=== PATIENT | female | born 1970 | race Caucasian/White ===

== ENCOUNTER 2016-11-14 06:24 | Day surgery (SDC) | payer MEDICARE, MEDICAID ==
[2016-11-13 15:07] LABS: APTT 26.2 SECONDS (22.8-39.4); INR 1.07 (0.85-1.17); PROTIME 13.7 SECONDS (11.6-15.0)
[2016-11-13 15:21] LABS: ANION GAP 13.9 mmol/L (8-16); CALCIUM 8.3 mg/dL (8.5-10.1); CREATININE - SERUM 2.5 mg/dL (0.6-1.3); POTASSIUM - SERUM 4.9 mmol/L (3.5-5.1)
[2016-11-13 15:25] LABS: BASOPHILS 0.4 % (0.0-2.0); EOSINOPHILS 2.9 % (0-7); HEMATOCRIT 34.5 % (36.0-48.0); HEMOGLOBIN 10.7 g/dL (12-16); IMMATURE GRANULOCYTES 0.1 % (0-5); LYMPHOCYTES 17.9 % (15-50); MCH 29.2 pg (26.0-34.0); MCV 94.3 fL (80.0-100.0); MEAN PLATELET VOLUME 9.2 fL (7.4-10.4); MONOCYTES 8.7 % (2-11); RBC 3.66 10x6/uL (4.00-5.40); RDW 13.3 % (11.5-14.5); WBC 7.8 10x3/uL (4.8-10.8)
[2016-11-13 15:26] LABS: PLATELET COUNT 248 10x3/uL (130-400)
[~2016-11-14] VITALS: Ht 157.5 cm; Wt 99.8 kg
[~2016-11-14 06:24] MED LIST: AMOXICILLIN500 M1 PO; ASPIRIN325 MG PO; COREG 3.1253.125 MG PO; FIORICET-COD 51 EACH PO; FLORINEF 0.1 M0.1 MG PO; FUROSEMIDE20 MG PO; HYDROCODONE-APA1 TAB PO; INCRUSE ELLI62.5 MCG INH; LASIX20 MG PO; LASIX40 MG PO; PACERONE200 MG PO; PAXIL40 MG PO; PHENERGAN25 M1 PO; PROAIR HFA8.5 GM INH; RYTHMOL SR225 MG PO; SPIRIVA18 MCG INH; SYMBICORT 16010.2 GM INH; SYNTHROID25 MCG PO; VITAMIN D250000 UNIT PO; ZESTRIL20 MG PO
[2016-11-14 08:38] VITALS: BP 136/82; Ht 157.5 cm; Wt 99.8 kg
[2016-11-14 08:48] LABS: HCG URINE NEGATIVE (NEGATIVE)
[2016-11-14] MEDS ORDERED: HYDROCODON-ACE1 EAC7 PO (13:50)
--- NOTE | 2016-11-18 14:04 | OP ---
PATIENT NAME: NOEMI VOGEL MEDICAL RECORD: [id number] :68 LOCATION:[facility] ADMISSION DATE: SURGEON: CARLOS EPSTEIN MD DATE OF OPERATION: 11/14/2016 PREOPERATIVE DIAGNOSES: Chronic kidney disease stage V. Complicating diagnoses of obesity, depression, anxiety, ____, hypertension and a number of others. POSTOPERATIVE DIAGNOSES: Chronic kidney disease stage V. Complicating diagnoses of obesity, depression, anxiety, ____, hypertension and a number of others. OPERATIONS PERFORMED: 1. Creation of a left brachial artery to basilic vein Howard type AV fistula. 2. Laparoscopy with insertion of a right-sided dual cuffed swan neck coil peritoneal dialysis catheter and suture plication or omentopexy, fixating the omentum to the anterior abdominal wall in the right upper quadrant. SURGEON: Carlos Epstein MD. ANESTHESIA: General endotracheal per [employer]. REFERRING PHYSICIAN: Matt Martinez MD. PREOPERATIVE NOTE: Ms. Vogel is a 46-year-old obese white female patient with chronic kidney disease, who is likely to require dialysis soon. She was referred to me for peritoneal dialysis catheter placement and creation of an AV fistula. She has rather poor veins and it is anticipated that she will need a 2-stage brachial artery to translocated basilic vein AV fistula. I will plan laparoscopic insertion of the PD catheter today. The fistula was constructed first. With the patient under anesthesia, she was prepped and draped in sterile manner. I examined her arm with ultrasound using topical nitroglycerin and a Vahe drain as a proximal venous tourniquet. The patient's basilic vein was of suitable caliber. The brachial artery appeared to be small, somewhat difficult to visualize with the ultrasound device. We had available today and I elected to go ahead with a brachiobasilic fistula. A hockey stick-shaped incision was made on the medial aspect of the arm and across the antecubital space and through that, the basilic vein was exposed in its tributaries, divided between 3-0 Vicryl ligatures and it was transected distally below the level of the antecubital crease, ligated there with 3-0 Vicryl and prepared for anastomosis. It was treated with topical papaverine, was flushed with heparinized saline and distended with hydrostatic pressure. The brachial artery was exposed. This dissection was considerably more difficult than usual with the artery in an aberrant location or aberrant anatomy covering the artery quite deep with muscle tissue rather than it being under the usual thin flap aponeurosis. The artery was quite good size. It was very soft and had no visible or palpable changes of atherosclerosis or calcification. It was controlled with doubly looped Silastic tapes. The artery was opened for about 7 mm. It was flushed proximally and distally with heparinized saline and the vein flushed again with heparinized saline, was beveled and then anastomosed end-to-side with running 7-0 Prolene. With completion of the suture line and release of the occluding clamps and vessel loops, excellent flow was immediately established in the fistula with persistence of flow in the distal brachial artery and in the radial artery and palmar arch. The wound was irrigated with OPERATIVE REPORT [id number] NOEMI VOGEL saline containing gentamicin and Ancef. The wound was infiltrated with 0.25% Marcaine with epinephrine and the wound was closed with interrupted 3-0 Vicryl and then running intracuticular 4-0 Monocryl and Dermabond glue. It was dressed with Maxorb Ag, Tegaderm and Cavilon skin prep. Next, the patient's abdomen was approached. A small incision was made in the left upper quadrant and through that, a 0-degree 5-mm diameter laparoscope was inserted using an XL Optiview type port. Pneumoperitoneum was established with carbon dioxide and I then switched to a 30-degree angled 5-mm scope. One additional 5-mm port and one 8-mm port was placed subsequently along the left side of the abdomen. I found that the patient had no evidence of any intra-abdominal adhesions. She has quite a marked diastasis recti with wide separation of the rectus muscles, but no true hernias were present. The omentum was quite generous and would require a fixation suture to help prevent omental wraps obstructing the dialysis catheter. An incision was made just above the level of the belly button laterally on the right side of the abdomen and through that, a needle and guidewire were inserted into the peritoneal cavity. A dilator peel-away sheath was inserted and then through that, catheter was inserted. The coiled catheter was placed in the pelvis and the Dacron felt cuff inserted deeply into the substance of the rectus muscle. The catheter was then brought out laterally and inferiorly through the subcutaneous tunnel, leaving the second of the Dacron felt cuff deep in the subcutaneous tissue. The catheter was flushed with saline and then hep-locked, clamped and capped. The abdominal field was examined and the omentum was sutured to the anterior abdominal wall in the right upper quadrant with a single 0 Ethibond suture with endoscopic technique. The ports were removed. A Kwesi-Abraham suture passer was used to close the fascia at the 8-mm port site. The other port sites were not closed in that manner, just irrigated with Ancef and gentamicin solution, infiltrated with Marcaine and the skin closed with interrupted inverted 3-0 Vicryl. The incisions were sealed and closed further with Dermabond glue and dressed with Maxorb Ag, Tegaderm and Cavilon skin prep. I used Dermabond glue to seal the catheter exit site in the right side of the abdomen and used Mastisol and quarter-inch Steri-Strips to secure the catheter. This was then covered with Maxorb Ag and Tegaderm and then the catheter was coiled up and all were covered over by 4 x 4 Medipore dressing. At this point then, the patient was awakened and extubated and taken to the recovery room in stable condition. Blood loss during the operation was insignificant and unreplaced and all sponges, instruments, and needles were accounted for. No drain was used and no surgical specimen was submitted for histopathology. PLAN: This patient will require return to the operating room in a few weeks for a second-stage procedure to translocate the basilic vein fistula. She will need to have her catheter flushed beginning next week by the peritoneal dialysis nurse. I will her have her return to see me in my office in 2 weeks and she may leave the original operative dressings on her other incisions intact until that time. I have left for her a prescription for Vicodin 5/325 with instructions that she may take 1 or 2 q.4-6 hours p.r.n. pain and then she is encouraged strongly not to take more often than prescribed and notified that this prescription cannot be refilled and cannot be called in to the pharmacy, but requires a written prescription. She is given my cell phone/telephone number so that she can reach me if she needs me over the weekend or outside of regular office hours. She is of course encouraged to call the office during regular business hours for most of her needs. Her appointment should be made for her today by the outpatient nurses before she is discharged. The patient is quite anxious and I do not know that she will tolerate OPERATIVE REPORT [id number] NOEMI VOGEL postoperative discomfort while at home. I have offered and tried to encourage her to stay in overnight observation. At this point, at least as I dictate, she is still insisting that she wants to go home, but she is also complaining of pain and worried about whether she will get a prescription, et cetera. We will not know until an hour or so from now whether she is actually going to go home or rather she will stay in overnight observation. TRANSINT:[id number] Voice Confirmation ID: [id number] DOCUMENT ID: [id number] CARLOS EPSTEIN MD at 1404 CC: PARIS MARTINEZ MD [id number] DICTATION DATE: 11/14/16 1415 GENETIC SCIENTIST: 11/15/16 0027 [facility] 11/14/[address] [address]
[2016-12-18] MEDS ORDERED: INCRUSE ELLI62.5 MCG INH (15:21)
== END 2016-11-14 16:45 | disposition home or self-care (01) ==
LOC: D.OPS 06:24 → D.PAN 09:00 → D.OPS 09:30 → D.PAN 09:30 → D.OPS 16:45
PROVIDERS: Internal Medicine Nephrology; Surgery
DX: I12.0 Hypertensive chronic kidney disease with stage 5 chronic kidney disease or end stage renal disease (principal); N18.5 Chronic kidney disease, stage 5; D63.1 Anemia in chronic kidney disease; Q79.59 Other congenital malformations of abdominal wall; I95.9 Hypotension, unspecified; J45.909 Unspecified asthma, uncomplicated; I45.6 Pre-excitation syndrome; E66.9 Obesity, unspecified; F32.9 Major depressive disorder, single episode, unspecified; F41.9 Anxiety disorder, unspecified; Z68.41 Body mass index [BMI] 40.0-44.9, adult

== ENCOUNTER 2016-12-19 05:28 | Day surgery (SDC) | payer MEDICARE ==
[2016-12-18 16:31] LABS: BASOPHILS 0.3 % (0.0-2.0); EOSINOPHILS 4.4 % (0-7); HEMATOCRIT 34.5 % (36.0-48.0); HEMOGLOBIN 10.8 g/dL (12-16); IMMATURE GRANULOCYTES 0.1 % (0-5); LYMPHOCYTES 12.5 % (15-50); MCH 29.7 pg (26.0-34.0); MCHC 31.3 g/dL (31.0-37.0); MCV 94.8 fL (80.0-100.0); MEAN PLATELET VOLUME 9.1 fL (7.4-10.4); MONOCYTES 8.4 % (2-11); NEUTROPHILS 74.3 % (40-80); PLATELET COUNT 267 10x3/uL (130-400); RBC 3.64 10x6/uL (4.00-5.40); RDW 13.3 % (11.5-14.5)
[2016-12-18 16:41] LABS: ANION GAP 15.2 mmol/L (8-16); APTT 25.1 SECONDS (22.8-39.4); CALCIUM 8.9 mg/dL (8.5-10.1); CARBON DIOXIDE 28.3 mmol/L (21.0-32.0); CREATININE - SERUM 2.9 mg/dL (0.6-1.3); INR 1.1 (0.85-1.17); POTASSIUM - SERUM 4.5 mmol/L (3.5-5.1)
[~2016-12-19] VITALS: Ht 157.5 cm; Wt 101.2 kg
[~2016-12-19 05:28] MED LIST changes: +HYDROCODON-ACE1 EAC7 PO
[2016-12-19] MEDS ORDERED: PROAIR HFA8.5 GM INH (07:32)
[2016-12-19 07:48] VITALS: BP 110/68; Ht 157.5 cm; Wt 101.2 kg
[2016-12-19 08:05] LABS: HCG URINE NEGATIVE (NEGATIVE)
--- NOTE | 2016-12-19 10:42 | NUR ---
EVICEL 2ML LOT [id number]
[2016-12-19] MEDS ORDERED: NORCO 7.5/325 T1 TA1 PO (11:53)
--- NOTE | 2016-12-19 20:56 | OP ---
PATIENT NAME: NOEMI VOGEL MEDICAL RECORD: [id number] :68 LOCATION:[facility] ADMISSION DATE: SURGEON: CARLOS EPSTEIN MD DATE OF OPERATION: 12/19/2016 PREOPERATIVE DIAGNOSES: 1. Chronic kidney disease stage V. 2. Mechanical malfunction of peritoneal dialysis catheter. OPERATION PERFORMED: Plan to return to the operating room for a second stage and creation of a left brachial artery to translocated basilic vein arteriovenous fistula and cathetergram and removal of peritoneal dialysis catheter. SURGEON: Carlos Epstein MD ANESTHESIA: General with LMA per [employer] OPERATOR. REFERRING PHYSICIAN: Dr. Matt Martinez. PREOPERATIVE NOTE: Ms. Vogel is a 46-year-old obese white female with poor peripheral veins for access, who has chronic kidney disease and is anticipated to require dialysis within months to a year or so. At this time, status post implantation of a peritoneal dialysis catheter and also is status post creation of a Howard-type AV fistula between the brachial artery and the basilic vein at the level of the antecubital space. She is to be returned to the operating room today as planned for the second stage operation to create the translocated basilic vein fistula. Also, her PD catheter has been difficult to flush and is not draining well, since it may be considerable time before she really needs it. Dr. Martinez has requested that I just remove the catheter. The plan to do a cathetergram and C-arm fluoroscopy. First, just to see what the problem is. First, the left arm was approached. I used ultrasound to examine the arm and noted that the basilic vein from axilla to the antecubital space was about centimeter in diameter or greater. I made a longitudinal incision from axilla to antecubital space and mobilized the vein, fully divided tributaries between Vicryl ligatures and Hemoclips. I created a slightly lateral subcutaneous tunnel as close to the skin as possible. The patient was heparinized with 2000 units of heparin and the vein was then clamped in the axilla and just above the arterial anastomosis. The vein was marked with a marking pen to aid in orientation and prevent twisting. The vein was treated with topical papaverine multiple times during the dissection. The vein was transected on the beveled and then from the sensory nerves, which overlay it and it was pulled through the tunnel, back to the antecubital space where an end-to-end washington-suture anastomosis 7-0 Prolene was performed. The suture line was also sealed with Ethicon Evicel and with release of the occluding clamps, excellent flow was established through the fistula. The fistula was easily palpable in its shallow subcutaneous tunnel. The radial artery pulse at the wrist is present. The Doppler pulsatile flow signal is better with occlusion of the fistula, but is still present with release of compression and opening the fistula. The anastomosis was carefully examined and was noted not narrowly vein at that point. The wound was then irrigated and infiltrated with 0.25% Marcaine with epinephrine and closed with interrupted inverted 3-0 Vicryl and running intracuticular 4-0 Monocryl and Dermabond glue and it was dressed with Maxorb Ag, Tegaderm and Cavilon skin prep. OPERATIVE REPORT [id number] NOEMI VOGEL The abdomen was then approached, I first flushed the catheter with saline and noted that it flushed rather easily. On examination under fluoroscopy, the coiled catheter was located in the right upper quadrant, having migrated full 180 degrees from its initial position in the pelvis. I injected contrast and saw no evidence of significant omental or other wrap. The catheter was flushed again with saline. It flushed easily and I was able to actually aspirates some of the irrigation fluid. I went ahead and removed the catheter, I made an incision at the previous operative site on the right side of the abdomen and exposed the catheter in the subcutaneous tissues and divided and discarded the external portion. Dissection with electrocautery exposed both Dacron felt cuffs and the catheter was then pulled out. It was discarded and not sent for any type of pathology examination or other documentation. I closed the anterior rectus fascial defect with 2 [id number]-[id number] 0 Vicryl sutures. The wound was irrigated with Ancef/gentamicin solution and infiltrated with 0.25% Marcaine with epinephrine and irrigated with saline and then the subcutaneous tissues were closed with Vicryl sutures and the skin was closed with a running 4-0 Monocryl and Dermabond glue and again Tegaderm and Maxorb AG dressings with Cavilon were applied. The patient at that point was awakened and taken to the recovery room in stable condition. Blood loss during the procedure was trivial and was unreplaced. All sponges, instruments and needles were accounted for. No drain was used and no surgical specimen was submitted for histopathology. PLAN: I have the patient to return to see me in my office next week. Assuming she goes home today as we had planned preoperatively. For pain, she is given a prescription for hydrocodone, [place] 7-1/2 mg, she is to take 1 p.o. q.4 hours p.r.n. pain. She was given 20, of course there are no refills. I will check her back in my office next week as I said and probably change her dressing then. She will continue all of her previous home medications and renal diet. She will resume activities as tolerated. TRANSINT:[id number] Voice Confirmation ID: [id number] DOCUMENT ID: [id number] CARLOS EPSTEIN MD at 2056 CC: PARIS MARTINEZ MD [id number] DICTATION DATE: 12/19/16 1208 SPECTRAL SCIENTIST: 12/19/16 1935 [facility] [address] [place] [address]
--- NOTE | 2016-12-19 21:10 | NUR ---
1330 IV DC WITH CATHER TIP INTACT
--- NOTE | 2016-12-19 21:14 | NUR ---
[address] EPSTEIN PT AND FAMILY WANTINT YO TALK WITH HIM , DR EPSTEIN STILL IN SURGERY 1430 DR EPSTEIN IN ROOM
== END 2016-12-19 14:30 | disposition home or self-care (01) ==
LOC: D.OPS 05:28 → D.PAN 08:00 → D.OPS 08:00
PROVIDERS: Internal Medicine Nephrology; Surgery
DX: T85.691A Other mechanical complication of intraperitoneal dialysis catheter, initial encounter (principal); Y83.8 Other surgical procedures as the cause of abnormal reaction of the patient, or of later complication, without mention of misadventure at the time of the procedure; E11.22 Type 2 diabetes mellitus with diabetic chronic kidney disease; I12.0 Hypertensive chronic kidney disease with stage 5 chronic kidney disease or end stage renal disease; N18.5 Chronic kidney disease, stage 5; Z79.4 Long term (current) use of insulin; J44.9 Chronic obstructive pulmonary disease, unspecified